=== PATIENT | female | born 1970 | race Caucasian/White ===

== ENCOUNTER 2018-02-28 16:20 | Emergency (ER) | payer MEDICAID ==
--- NOTE | 2018-02-28 17:36 | ED Physician Chart ---
ED Chief Complaint/HPI - Patient Information Date Seen:: 02/28/18 Time Seen:: 17:10 Chief Complaint:: ear pain and rash History of Present Illness:: Patient's had bilateral ear pain for the last 3 weeks. She's been putting peroxide in both ears which she thinks is making the pain worse. Patient's also had a burning and itching rash for the last 1/2-2 weeks. Patient lives with her boyfriend and states his home has had bedbugs before but apparently not scabies. Allergies:: Allergies Allergy/AdvReac Type Severity Reaction Status Date / Time acetaminophen [From Vicodin] Allergy Verified 02/28/18 16:57 hydrocodone [From Vicodin] Allergy Verified 02/28/18 16:57 Vitals:: Vital Signs - 8 hr 02/28/18 16:50 Temp 98.2 F HR 84 RR 16 BP 141/83 O2 Sat % 98 Historian:: Patient Review:: Nurse's Note Reviewed ED Review of Systems - Review of Systems General/Constitutional: No fever, No chills Skin: Skin lesions, Rash Head: No headache Eyes: No loss of vision ENT: Earache, Nasal drainage Neck: No neck pain, No swelling Cardio Vascular: No chest pain, No palpitations GI: No nausea, No vomiting G/U: No dysuria Musculoskeletal: No bone or joint pain Endocrine: No polyuria Psychiatric: No prior psych history, No depression Hematopoietic: No bruising Allergic/Immuno: No urticaria Neurological: No syncope, No focal symptoms ED Past Medical History - Past Medical History Past Medical History: Other (diverticulitis; hernia; status post urinary tract infection) Family History: Heart disease Social History: Smoker, 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) Surgical History: Hysterectomy, other (right hip for congenital hip dysplasia) Medication: None ED Physical Exam - Physical Examination General/Constitutional: Awake, Well-developed, well-nourished, Alert, No distress Head: Atraumatic Eyes: Lids, conjuctiva normal, PERRL Other Skin comments:: Slight widespread maculopapular rash ENMT: TM canals nl Other ENMT comments:: Redness and swelling tragus left ear; tenderness tragus right ear Neck: No nuchal rigidity Respiratory: Nl effort/Exclusion, Clear to Auscultation Cardio Vascular: RRR, No murmur, gallop, rubs, NL S1 S2 GI: No tenderness/rebounding/guarding : No CVA tenderness Extremities: Normal digits & nails Neuro/Psych: Alert/oriented ED Assessment - Assessment General Assessment: Examination of the ears reveal normal tympanic membranes; patient has cellulitis of the tragus of the left ear and since the tragus of her right ear is also tender (although not red and swollen) there may be some cellulitis of tragus of the right ear also. Patient may also have some otitis externa so will be prescribed Cortisporin otic suspension. She may also have scabies so will be prescribed Elimite 60 g tube. I personally gave instructions on how to apply the Elimite. ED Septic Shock - . Is Septic Shock (SBP<90, OR Lactate>4 mmol\L) present?: No - <6hrs of presentation: Vital Signs: Vital Signs - 8 hr 02/28/18 16:50 Temp 98.2 F HR 84 RR 16 BP 141/83 O2 Sat % 98 ED Reassessment (Disposition) - Reassessment Reassessment Condition:: Unchanged - Diagnosis Diagnosis:: Cellulitis left ear; otitis externa; scabies - Aftercare/Follow up Instructions Medication Prescribed:: Bactrim double strength #20 to take one twice a day; Elimite 60 g tube to apply per directions; Cortisporin otic to apply 3 drops both ears 4 times a day; Atarax 25 mg #20 take 1 4 times a day - Patient Disposition Discharge/Transfer:: Home Condition at Disposition:: Stable, Unchanged
== END 2018-02-28 18:00 | disposition home or self-care (01) ==
LOC: ER 16:20
DX: H60.92 Unspecified otitis externa, left ear (principal); B86 Scabies; F17.200 Nicotine dependence, unspecified, uncomplicated; Z90.710 Acquired absence of both cervix and uterus; Z88.8 Allergy status to other drugs, medicaments and biological substances
CPT/HCPCS: Z7502

== ENCOUNTER 2019-03-12 16:22 | Emergency (ER) | payer MEDICAID ==
--- NOTE | 2019-03-12 16:58 | ED Physician Chart ---
ED Chief Complaint/HPI - Patient Information Date Seen:: 03/12/19 Time Seen:: 16:40 Chief Complaint:: Abdominal Pain History of Present Illness:: onset x 3 days of diffuse, intermittent, crampy Abdominal Pain, and Leg Pain with N/V/D; pt denies trauma, H/As, S/T, neck pain, C/P, SOB, A/C, fever, chills , or urinary s/s Allergies:: Allergies Allergy/AdvReac Type Severity Reaction Status Date / Time No Known Allergies Allergy Verified 03/12/19 16:37 Vitals:: Vital Signs - 8 hr 03/12/19 16:40 Temp 97.7 F HR 95 RR 16 BP 123/79 O2 Sat % 98 Historian:: Patient Review:: Nurse's Note Reviewed, Old Chart Reviewed, EMS run form Reviewed ED Review of Systems - Review of Systems General/Constitutional: No fever, No chills, No weight loss, No weakness, No diaphoresis, No edema, No loss of appetite Skin: No skin lesions, No rash, No bruising Head: No headache, No light-headedness Eyes: No loss of vision, No pain, No diplopia ENT: No earache, No nasal drainage, No sore throat, No tinnitus Neck: No neck pain, No swelling, No thyromegaly, No stiffness, No mass noted Cardio Vascular: No chest pain, No palpitations, No PND, No orthopnea, No edema Pulmonary: No SOB, No cough, No sputum, No wheezing GI: Nausea, Vomiting, Diarrhea, Pain, No melena, No hematochezia, No constipation, No hematemesis G/U: No dysuria, No frequency, No hematuria, No nacturia Dairy Grazer: No vaginal discharge, No abnormal vaginal bleed, No contraction Musculoskeletal: No bone or joint pain, No back pain, No muscle pain Endocrine: No polyuria, No polydipsia Psychiatric: No prior psych history, No depression, No anxiety, No suicidal ideation, No homicidal ideation, No auditory hallucination, No visual hallucination Hematopoietic: No bruising, No lymphadenopathy Allergic/Immuno: No urticaria, No angioedema Neurological: No syncope, No focal symptoms, No weakness, No paresthesia, No headache, No seizure, No dizziness, No confusion, No vertigo ED Past Medical History - Past Medical History Obtainable: Yes Past Medical History: HTN Family History: HTN Social History: Non Smoker, No Alcohol, No Drug Use, Surgical History: Hysterectomy Psychiatricy History: None Medication: Reviewed Family Medical History - Family Member Mother History Unknown: Yes Ethnicity: Living Status: Unknown ED Physical Exam - Physical Examination General/Constitutional: Awake, Well-developed, well-nourished, Alert, No distress, GCS 15, Non-toxic appearing, Ambulatory Head: Atraumatic Eyes: Lids, conjuctiva normal, PERRL, EOMI Skin: Nl inspection, No rash, No skin lesions, No ecchymosis, Well hydrated, No lymphadenopathy ENMT: External ears, nose nl, TM canals nl, Nasal exam nl, Lips, teeth, gums nl , Oropharynx nl, Tonsils nl Neck: Nontender, Full ROM w/o pain, No JVD, No nuchal rigidity, No bruit, No mass, No stridor Respiratory: Nl effort/Exclusion, Clear to Auscultation, No Wheeze/Rhonchi/Rales Cardio Vascular: RRR, No murmur, gallop, rubs, NL S1 S2, Carotid/Femoral/Distal pulses equal bilaterally GI: No tenderness/rebounding/guarding, No organomegaly, No hernia, Normal BS's, Nondistended, No mass/bruits, No McBurney tenderness : No CVA tenderness Extremities: No tenderness or effusion, Full ROM, normal strength in all extremities, No edema, Normal digits & nails Neuro/Psych: Alert/oriented, DTR's symmetric, Normal sensory exam, Normal motor strength, Judgement/insight normal, Mood normal, Normal gait, No focal deficits Misc: Normal back, No paraspinal tenderness ED Labs/Radiology/EKG Results - Lab Results Comments:: Reviewed - Radiology Results Comments:: U/S: no DVT; NAD - EKG Interpretations EKG Time:: 16:47 Rate & Rhythm: 91; NSR Comments:: non-specific st-t changes ED Septic Shock - . Is Septic Shock (SBP<90, OR Lactate>4 mmol\L) present?: No - <6hrs of presentation: Vital Signs: Vital Signs - 8 hr 03/12/19 16:40 Temp 97.7 F HR 95 RR 16 BP 123/79 O2 Sat % 98 ED Reassessment (Disposition) - Reassessment Reassessment Condition:: Improved - Diagnosis Diagnosis:: Leg Pain; Abdominal Pain; N/V/D; AGE; UTI
[2019-03-12] MEDS: Sodium Chloride 0.9% 1,000 ML IV ONE (16:59)
[2019-03-12 17:04] LABS: % EOSINOPHILS 2.7 % (0.0-5.0); % LYMPHOCYTES 24.3 % (20.0-50.0); % MONOCYTES 3.3 % (2.0-10.0); % NEUTROPHILS 69.7 % (40.0-80.0); EOSINOPHILE ABSOLUTE 0.2 Th/cmm (0.1-0.4); HEMATOCRIT 39.6 % (41.0-60); HEMOGLOBIN 13.2 gm/dL (12-16); LYMPHOCYTE ABSOLUTE 2.1 Th/cmm (1.5-3.0); MEAN CELL VOLUME 91.7 fl (81-100); MEAN CORPUSCULAR HEMOGLOBIN 30.4 pg (27.0-31.0); MEAN CORPUSCULAR HGB CONC 33.2 pg (28.0-36.0); MEAN PLATELET VOLUME 7.8 fl; MONOCYTE ABSOLUTE 0.3 Th/cmm (0.3-1.0); NEUTROPHILE ABSOLUTE 5.9 Th/cmm (1.8-8.0); PLATELET COUNT 339 Th/cmm (150-400); RED BLOOD COUNT 4.32 Mil/cmm (3.80-5.10); RED CELL DISTRIBUTION WIDTH 13.5 % (11.5-20.0); WHITE BLOOD COUNT 8.5 Th/cmm (4.8-10.8)
[2019-03-12 17:16] LABS: ALB/GLOB RATIO 1.4 (1.0-1.8); ALKALINE PHOSPHATASE 58 U/L (34-104); AMYLASE SERUM 48 U/L (29-103); ANION GAP 13.5 (7.0-16.0); BILIRUBIN,TOTAL 0.2 mg/dL (0.3-1.0); BUN - UREA NITROGEN 21 mg/dL (7-25); CALCIUM SERUM 9.1 mg/dL (8.6-10.3); CARBON DIOXIDE 25.5 mEq/L (21.0-31.0); CHLORIDE 107 mEq/L (98-107); CREATININE - SERUM 0.8 mg/dL (0.6-1.2); GFR AFRICAN-AMERICAN > 60.0 ml/min (>90); GFR NON AFRICAN-AMERICAN > 60.0 ml/min; GLUCOSE 120 mg/dL (70-105); LIPASE 46 U/L (11-82); SGOT 17 U/L (13-39); SGPT/ALT 14 U/L (7-52); SODIUM SERUM 142 mEq/L (136-145); TOTAL PROTEIN,SERUM 6.9 gm/dL (6.0-8.3)
[2019-03-12 17:29] LABS: URINE SOURCE CLEAN C
[2019-03-12 17:32] LABS: URINE BILIRUBIN NEGATIVE (NEGATIVE); URINE BLOOD NEGATIVE (NEGATIVE); URINE GLUCOSE (UA) NEGATIVE (NEGATIVE); URINE KETONE NEGATIVE (NEGATIVE); URINE LEUKOCYTE ESTERASE NEGATIVE (NEGATIVE); URINE NITRATE NEGATIVE (NEGATIVE); URINE PH 6.5 (4.6 - 8.0); URINE PROTEIN NEGATIVE (NEGATIVE); URINE UROBILINOGEN 0.2 E.U./dL (0.2 - 1.0)
[2019-03-12 17:34] LABS: URINE CLARITY CLEAR (CLEAR); URINE COLOR YELLOW; URINE MICROSCOPIC INDICATED? YES
[2019-03-12 17:36] LABS: URINE BACTERIA FEW /hpf (NONE SEEN); URINE EPITHELIAL CELLS FEW /lpf (FEW); URINE RBC 0-2 /hpf (0-5)
[2019-03-12] MEDS: cefTRIAXone 1 GM in Sodium Chloride 0.9% 50 ML IV ONE (19:09)
--- NOTE | 2019-03-13 08:40 | Diagnostic Imaging Report ---
Bilateral lower extremity DVT study HISTORY: Pain COMPARISON: None Technique: Longitudinal and transverse sonographic images of the bilateral lower extremity veins were obtained with doppler analysis. FINDINGS: There is normal compressibility, augmentation and phasicity of the bilateral common femoral, superficial femoral, popliteal, and posterior tibial veins. The right peroneal vein was not visualized. Otherwise no evidence of thrombus formation. IMPRESSION: The right peroneal vein was not clearly visualized, otherwise no evidence of thrombus formation.
--- NOTE | 2019-03-13 08:56 | Diagnostic Imaging Report ---
CT abdomen and pelvis without intravenous contrast Indication: Abdominal pain, vomiting, rule out appendicitis Comparison: CT abdomen and pelvis on 01/13/2019, Technique: Axial images were obtained from the lung bases to the bilateral proximal femurs without IV contrast. Coronal reconstructions were made. total DLP: 642, CTDI13.8 FINDINGS: Hypoventilatory changes of the lung bases are noted. Assessment of the solid organs is limited due to lack of IV contrast. No focal hepatic lesions. There is a moderate-sized hiatal hernia. No focal splenic, pancreatic, or hydronephrosis. No evidence hydronephrosis or focal renal lesions. Diverticulosis is noted on suggest diverticulitis. No appendicitis. No free fluid or free air. Degenerative changes of the spine and pelvis are noted. IMPRESSION: No evidence of acute appendicitis. Moderate sized hiatal hernia seen on prior exam. Diverticulosis without evidence of diverticulitis.
== END 2019-03-12 19:56 | disposition home or self-care (01) ==
LOC: ER 16:22
DX: K52.9 Noninfective gastroenteritis and colitis, unspecified (principal); N39.0 Urinary tract infection, site not specified; M79.606 Pain in leg, unspecified; I10 Essential (primary) hypertension; Z90.710 Acquired absence of both cervix and uterus
CPT/HCPCS: 99284; 96365; 96361; 96375; 93005; 93970; 74176; 84484; 36415; 85025; 81001; 82150; 84703; 81025; 83690; 80053; J2405; J0696; J7030

== ENCOUNTER 2019-05-16 15:13 | Inpatient (IN) | payer MEDICAID ==
[2019-05-16 16:05] LABS: % BASOPHILS 0.8 % (0.0-2.0); % EOSINOPHILS 4.3 % (0.0-5.0); % LYMPHOCYTES 26.8 % (20.0-50.0); % MONOCYTES 6.9 % (2.0-10.0); % NEUTROPHILS 61.2 % (40.0-80.0); BASOPHILE ABSOLUTE 0.1 Th/cumm (0-0.2); EOSINOPHILE ABSOLUTE 0.4 Th/cmm (0.1-0.4); HEMATOCRIT 37.1 % (41.0-60); HEMOGLOBIN 12.2 gm/dL (12-16); LYMPHOCYTE ABSOLUTE 2.2 Th/cmm (1.5-3.0); MEAN CELL VOLUME 92.9 fl (81-100); MEAN CORPUSCULAR HEMOGLOBIN 30.5 pg (27.0-31.0); MEAN CORPUSCULAR HGB CONC 32.9 pg (28.0-36.0); MONOCYTE ABSOLUTE 0.6 Th/cmm (0.3-1.0); NEUTROPHILE ABSOLUTE 4.9 Th/cmm (1.8-8.0); PLATELET COUNT 321 Th/cmm (150-400); RED BLOOD COUNT 3.99 Mil/cmm (3.80-5.10); RED CELL DISTRIBUTION WIDTH 13.2 % (11.5-20.0); WHITE BLOOD COUNT 8.2 Th/cmm (4.8-10.8)
--- NOTE | 2019-05-16 16:05 | ED Physician Chart ---
ED Chief Complaint/HPI - Patient Information Date Seen:: 05/16/19 Time Seen:: 15:25 Chief Complaint:: Chest Pain History of Present Illness:: onset x 3 days of pressure exertional chest pain with dyspnea; pt denies trauma , H/As, neck pain, cough, Abd. Pain, A/N/V/D/C, fever, chills, or urinary s/s Allergies:: Allergies Allergy/AdvReac Type Severity Reaction Status Date / Time No Known Allergies Allergy Verified 03/12/19 16:37 Vitals:: Vital Signs - 8 hr 05/16/19 15:25 Temp 97.1 F HR 75 RR 16 BP 117/75 O2 Sat % 98 Historian:: Patient, Family Member Review:: Nurse's Note Reviewed, Old Chart Reviewed ED Review of Systems - Review of Systems General/Constitutional: No fever, No chills, No weight loss, No weakness, No diaphoresis, No edema, No loss of appetite Skin: No skin lesions, No rash, No bruising Head: No headache, No light-headedness Eyes: No loss of vision, No pain, No diplopia ENT: No earache, No nasal drainage, No sore throat, No tinnitus Neck: No neck pain, No swelling, No thyromegaly, No stiffness, No mass noted Cardio Vascular: Chest pain, No palpitations, No PND, No orthopnea, No edema Pulmonary: SOB, Cough, No sputum, No wheezing GI: No nausea, No vomiting, No diarrhea, No pain, No melena, No hematochezia, No constipation, No hematemesis G/U: No dysuria, No frequency, No hematuria, No nacturia Wool Broker: No vaginal discharge, No abnormal vaginal bleed, No contraction Musculoskeletal: No bone or joint pain, No back pain, No muscle pain Endocrine: No polyuria, No polydipsia Psychiatric: No prior psych history, No depression, No anxiety, No suicidal ideation Hematopoietic: No bruising, No lymphadenopathy Allergic/Immuno: No urticaria, No angioedema Neurological: No syncope, No focal symptoms, No weakness, No paresthesia, No headache, No seizure, No dizziness, No confusion, No vertigo ED Past Medical History - Past Medical History Obtainable: Yes Past Medical History: HTN Family History: HTN Social History: Non Smoker, No Alcohol, No Drug Use, Surgical History: None Psychiatricy History: None Medication: Reviewed Family Medical History - Family Member Mother History Unknown: Yes Ethnicity: Living Status: Unknown ED Physical Exam - Physical Examination General/Constitutional: Awake, Well-developed, well-nourished, Alert, No distress, GCS 15, Non-toxic appearing, Ambulatory Head: Atraumatic Eyes: Lids, conjuctiva normal, PERRL, EOMI Skin: Nl inspection, No rash, No skin lesions, No ecchymosis, Well hydrated, No lymphadenopathy ENMT: External ears, nose nl, TM canals nl, Nasal exam nl, Lips, teeth, gums nl , Oropharynx nl, Tonsils nl Neck: Nontender, Full ROM w/o pain, No JVD, No nuchal rigidity, No bruit, No mass, No stridor Other Neck comments:: supple; no meningeal signs; no cervical tenderness; no bruits Respiratory: Nl effort/Exclusion, Clear to Auscultation, No Wheeze/Rhonchi/Rales Cardio Vascular: RRR, No murmur, gallop, rubs, NL S1 S2, Carotid/Femoral/Distal pulses equal bilaterally GI: No tenderness/rebounding/guarding, No organomegaly, No hernia, Normal BS's, Nondistended, No mass/bruits, No McBurney tenderness Other GI comments:: no pulsatile masses : No CVA tenderness Extremities: No tenderness or effusion, Full ROM, normal strength in all extremities, No edema, Normal digits & nails Neuro/Psych: Alert/oriented, DTR's symmetric, Normal sensory exam, Normal motor strength, Judgement/insight normal, Mood normal, Normal gait, No focal deficits Misc: Normal back, No paraspinal tenderness ED Labs/Radiology/EKG Results - Lab Results Comments:: Reviewed - Radiology Results Comments:: CXR: NAD - EKG Interpretations EKG Time:: 15:54 Rate & Rhythm: 75; NSR Comments:: T-Wave Inversions; non-specific st-t changes ED Septic Shock - . Is Septic Shock (SBP<90, OR Lactate>4 mmol\L) present?: No - <6hrs of presentation: Vital Signs: Vital Signs - 8 hr 05/16/19 15:25 Temp 97.1 F HR 75 RR 16 BP 117/75 O2 Sat % 98 ED Reassessment (Disposition) - Reassessment Reassessment Condition:: Improved - Diagnosis Diagnosis:: Chest Pain; Dyspnea; Myocardial Ischemia; Hyperglycemia; Dehydration; Unstable Angina; Anxiety; HTN; Angina Pectoris - Aftercare/Follow up Instructions Aftercare/Follow-Up Instructions:: Counseled pt regarding lab results/diagnosis & need follow up, Counseled pt & family regarding lab results/diagnosis & need follow up - Patient Disposition Discharge/Transfer:: Acute Care w/in this hosp Accepting Physician:: Dr. Gallagher Time Called:: 1700 Time Responded:: 17:00 Admitted to:: Telemetry Spoke to:: Dr. Gallagher Admitting Medical Physician:: Dr. Gallagher Condition at Disposition:: Stable, Improved
[2019-05-16 16:20] LABS: ALB/GLOB RATIO 1.4 (1.0-1.8); ALBUMIN 3.7 gm/dL (3.7-5.3); ALKALINE PHOSPHATASE 49 U/L (34-104); ANION GAP 12.3 (7.0-16.0); BILIRUBIN,TOTAL 0.2 mg/dL (0.3-1.0); BUN - UREA NITROGEN 31 mg/dL (7-25); CALCIUM SERUM 9.2 mg/dL (8.6-10.3); CARBON DIOXIDE 22.3 mEq/L (21.0-31.0); CHLORIDE 108 mEq/L (98-107); CHOLESTEROL 160 mg/dL (<200); CREATININE - SERUM 0.7 mg/dL (0.6-1.2); CREATININE KINASE 64 U/L (30-223); GFR AFRICAN-AMERICAN > 60.0 ml/min (>90); GFR NON AFRICAN-AMERICAN > 60.0 ml/min; GLUCOSE 157 mg/dL (70-105); HDL -HIGH DENSITY LIPOPROTEIN 53 mg/dL (23-92); POTASSIUM SERUM 3.6 mEq/L (3.5-5.1); SGOT 13 U/L (13-39); SGPT/ALT 12 U/L (7-52); SODIUM SERUM 139 mEq/L (136-145); TOTAL PROTEIN,SERUM 6.3 gm/dL (6.0-8.3); TRIGLYCERIDES 100 mg/dL (<150)
[2019-05-16 17:11] LABS: INR 0.9 (0.5-1.4)
[2019-05-16] MEDS ORDERED: Aspirin 81mg Chewable Tab PO STA (17:12)
[2019-05-16] MEDS ORDERED: NITROGLYCERIN OINT 2% 1 INCH PACKET TP STA (17:13)
[2019-05-16] MEDS ORDERED: Aspirin 81mg Chewable Tab ONE (17:56)
[2019-05-16] MEDS ORDERED: NITROGLYCERIN OINT 2% 1 INCH PACKET TP ONE (17:56)
[2019-05-16] MEDS ORDERED: Albuterol Nebulizer 2.5mg/3mL HHN PRN (20:17)
[2019-05-16] MEDS ORDERED: Ipratropium Neb 0.5 mg/2.5 mL UD HHN PRN (20:17)
[2019-05-16] MEDS ORDERED: guaiFENesin 200 MG/10 ML UDC PO PRN (20:17)
[2019-05-16 20:21] VITALS: BP 125/67
[2019-05-16] MEDS: Heparin Sod 5,000Units/ML 5,000 UNITS/ML VIAL SUBQ SCH (21:02)
[2019-05-16] MEDS: D5-0.45NS 1,000 ML IV SCH (21:04)
--- NOTE | 2019-05-16 22:48 | History & Physical ---
ADMIT DATE: 05/16/2019 CHIEF COMPLAINT: Chest pain. HISTORY OF PRESENT ILLNESS: This is a 48-year-old female with history of hypertension, depression, admitted from home secondary to history of shortness of breath associated with chest pain. There is also nausea and vomiting. The patient is being admitted through the ER. PAST MEDICAL HISTORY: As mentioned in history of present illness. PAST SURGICAL HISTORY: Denies surgeries in the past. ALLERGIES: No known drug allergies. MEDICATIONS: The patient is on Zoloft, ____, ibuprofen, ____. FAMILY HISTORY: Noncontributory. SOCIAL HISTORY: The patient did smoke. No alcohol or intravenous drug use. REVIEW OF SYSTEMS: GENERAL: Complains not feeling well. HEENT: No blurred vision. LUNGS: No diagnosis of COPD or asthma. HEART: The patient with chest pain, history of hypertension. ABDOMEN: No nausea, vomiting, pain. GENITOURINARY: The patient denies increased frequency or dysuria. NEUROLOGIC: No headache, seizure, or syncope. PSYCHIATRIC: Stable. PHYSICAL EXAMINATION: VITAL SIGNS: Blood pressure 125/67, respirations 20, pulse 96, temperature 97.9. GENERAL: Middle-aged female, morbidly obese. NECK: Supple. No mass. LUNGS: Equal breath sounds, few rhonchi. HEART: Regular rate and rhythm without appreciable murmur. ABDOMEN: Soft, globular. EXTREMITIES: Positive excoriations. LABORATORY DATA: WBC 8.3, hemoglobin ____, platelets 321. Sodium 139, potassium 3.6, BUN 31, creatinine 0.7, blood sugar 167. Troponin negative x 1. ASSESSMENT AND PLAN: Chest pain, possible ACS, obesity, renal insufficiency, hyperglycemia, hypertension, and psych disorder. We will continue the patient on ____. We will perform 2D echo. We will refer the patient to Cardiology. The patient needs a stress test. Check the patient's A1c. We will hydrate the patient. Continue aspirin. We will consider beta kike. Continue on psych meds. We will monitor the patient closely in telemetry. JOB# [id number]
[2019-05-17 06:01] LABS: ANION GAP 11.1 (7.0-16.0); BUN - UREA NITROGEN 30 mg/dL (7-25); CALCIUM SERUM 8.8 mg/dL (8.6-10.3); CARBON DIOXIDE 24.9 mEq/L (21.0-31.0); CHLORIDE 107 mEq/L (98-107); CREATININE - SERUM 0.6 mg/dL (0.6-1.2); GFR AFRICAN-AMERICAN > 60.0 ml/min (>90); GFR NON AFRICAN-AMERICAN > 60.0 ml/min; GLUCOSE 123 mg/dL (70-105); SODIUM SERUM 139 mEq/L (136-145)
[2019-05-17] MEDS: D5-0.45NS 1,000 ML IV SCH (09:15)
[2019-05-17] MEDS: Heparin Sod 5,000Units/ML 5,000 UNITS/ML VIAL SUBQ SCH ×2 (09:20→20:24)
--- NOTE | 2019-05-17 09:36 | Diagnostic Imaging Report ---
CHEST X-RAY: AP view INDICATION: pain COMPARISON: None FINDINGS: Mild chronic interstitial lung changes are noted. There is faint 3 to 4 mm density projecting along the mid to lower lung zone between the right seventh and eighth posterior ribs. No focal consolidation or effusions. Heart size is normal. Osseous structures are intact. IMPRESSION: Mild chronic initial lung changes no focal consolidation identified. Faint 3 to 4 mm density projecting along the right lower lung zone between the right seventh and eighth posterior ribs. Findings are nonspecific and may be due to superimposition of bronchovascular structures and scapula versus less likely small nodule. Correlation with old exams would be helpful for comparison. Repeat chest x-ray with inspiratory and expiratory views is also recommended if no prior exams are available. If necessary CT follow-up may also be obtained. Final results were communicated administered to the ER team on 05/17/2019 at 9:30 AM.
--- NOTE | 2019-05-17 10:28 | General Progress Note ---
Subjective - Review of Systems Service Date: 05/17/19 Subjective: Chest pain increased with deep presenting persistent Objective - Results Result Diagrams: 05/16/19 15:55 05/17/19 05:12 Recent Labs: Laboratory Last Values WBC 8.2 Th/cmm (4.8-10.8) 05/16/19 15:55 RBC 3.99 Mil/cmm (3.80-5.10) 05/16/19 15:55 Hgb 12.2 gm/dL (12-16) 05/16/19 15:55 Hct 37.1 % (41.0-60) L 05/16/19 15:55 MCV 92.9 fl (81-100) 05/16/19 15:55 MCH 30.5 pg (27.0-31.0) 05/16/19 15:55 MCHC Differential 32.9 pg (28.0-36.0) 05/16/19 15:55 RDW 13.2 % (11.5-20.0) 05/16/19 15:55 Plt Count 321 Th/cmm (150-400) 05/16/19 15:55 MPV 7.8 fl 05/16/19 15:55 Neutrophils % 61.2 % (40.0-80.0) 05/16/19 15:55 Lymphocytes % 26.8 % (20.0-50.0) 05/16/19 15:55 Monocytes % 6.9 % (2.0-10.0) 05/16/19 15:55 Eosinophils % 4.3 % (0.0-5.0) 05/16/19 15:55 Basophils % 0.8 % (0.0-2.0) 05/16/19 15:55 PT 9.4 SECONDS (9.5-11.5) L 05/16/19 15:55 INR 0.90 (0.5-1.4) 05/16/19 15:55 D-Dimer 139 ng/mL (100-400) 05/16/19 15:55 Sodium 139 mEq/L (136-145) 05/17/19 05:12 Potassium 4.0 mEq/L (3.5-5.1) 05/17/19 05:12 Chloride 107 mEq/L (98-107) 05/17/19 05:12 Carbon Dioxide 24.9 mEq/L (21.0-31.0) 05/17/19 05:12 Anion Gap 11.1 (7.0-16.0) 05/17/19 05:12 BUN 30 mg/dL (7-25) H 05/17/19 05:12 Creatinine 0.6 mg/dL (0.6-1.2) 05/17/19 05:12 Est GFR ( Amer) > 60.0 ml/min (>90) 05/17/19 05:12 Est GFR (Non-Af Amer) > 60.0 ml/min 05/17/19 05:12 BUN/Creatinine Ratio 50.0 05/17/19 05:12 Glucose 123 mg/dL (70-105) H 05/17/19 05:12 POC Glucose 104 MG/DL (70 - 105) 05/16/19 18:34 Calcium 8.8 mg/dL (8.6-10.3) 05/17/19 05:12 Total Bilirubin 0.2 mg/dL (0.3-1.0) L 05/16/19 15:55 AST 13 U/L (13-39) 05/16/19 15:55 ALT 12 U/L (7-52) 05/16/19 15:55 Alkaline Phosphatase 49 U/L (34-104) 05/16/19 15:55 Creatine Kinase 64 U/L (30-223) 05/16/19 15:55 Troponin I < 0.01 ng/mL (0.01-0.05) L 05/17/19 01:59 B-Natriuretic Peptide 14.3 pg/mL (5.0-100.0) 05/16/19 15:55 Total Protein 6.3 gm/dL (6.0-8.3) 05/16/19 15:55 Albumin 3.7 gm/dL (3.7-5.3) 05/16/19 15:55 Globulin 2.6 gm/dL 05/16/19 15:55 Albumin/Globulin Ratio 1.4 (1.0-1.8) 05/16/19 15:55 Triglycerides 100 mg/dL (<150) 05/16/19 15:55 Cholesterol 160 mg/dL (<200) 05/16/19 15:55 LDL Cholesterol Direct 90 mg/dL (75-193) 05/16/19 15:55 HDL Cholesterol 53 mg/dL (23-92) 05/16/19 15:55 TSH 1.60 uIU/ml (0.34-5.60) 05/17/19 05:12 Serum , Qual NEGATIVE (NEGATIVE) 05/16/19 15:55 - Physical Exam Vitals and I&O: Vital Signs Temp 98.3 F 05/17/19 08:00 Pulse 60 05/17/19 09:15 Resp 19 05/17/19 08:00 BP 107/72 05/17/19 09:15 Pulse Ox 95 05/17/19 08:00 Intake & Output 05/16/19 05/17/19 05/17/19 18:59 06:59 18:59 Intake Total 0 900 974.667 Output Total 200 5 Balance -200 895 974.667 Weight (lbs) 104.326 kg 106.367 kg Intake: Intake, IV Amount 974.667 D5-0.45NS 1,000 ml @ 80 974.667 mls/hr IV .[id number] [facility] Rx #:[id number] Oral 0 900 Output: Urine 200 2 Emesis 3 Other: Stool Characteristics Soft Formed Weight Source Patient stated Bedscale Active Medications: Current Medications Acetaminophen (Tylenol) 650 mg PO Q4H PRN PRN Reason: Pain Or Fever above 101 Stop: 07/15/19 20:16 Albuterol Sulfate (Albuterol 2.5mg/3ml Neb Ud) 2.5 mg HHN Q2HRT PRN PRN Reason: Shortness of Breath or Wheeze Stop: 07/15/19 20:16 Aspirin (Ecotrin) 81 mg PO DAILY [facility] Stop: 07/16/19 08:59 Last Admin: 05/17/19 09:16 Dose: 81 mg Cyclobenzaprine HCl (Flexeril) 10 mg PO HS [facility] Stop: 07/15/19 20:59 Last Admin: 05/16/19 21:04 Dose: 10 mg Guaifenesin (Robitussin) 200 mg PO Q4HR PRN PRN Reason: Cough or Congestion Stop: 07/15/19 20:16 Heparin Sodium (Porcine) (Heparin) 5,000 units SUBQ Q12HR [facility] Stop: 07/15/19 20:59 Last Admin: 05/17/19 09:20 Dose: 5,000 units Dextrose/Sodium Chloride (D5-0.45ns) 1,000 mls @ 80 mls/hr IV .[id number] [facility] Stop: 07/15/19 20:29 Last Admin: 05/17/19 09:15 Dose: 80 mls/hr Ibuprofen (Motrin) 800 mg PO TID PRN PRN Reason: Pain (Moderate) Stop: 07/15/19 20:59 Ipratropium [place] (Atrovent Neb 0.5mg/2.5ml) 0.5 mg HHN Q2HRT PRN PRN Reason: Shortness of Breath or Wheeze Stop: 07/15/19 20:16 Lisinopril (Zestril) 10 mg PO DAILY [facility] Stop: 07/16/19 08:59 Last Admin: 05/17/19 09:15 Dose: 10 mg Nitroglycerin (Nitrostat) 0.4 mg SL Q5MIN PRN PRN Reason: Chest Pain Stop: 07/15/19 20:16 Last Admin: 05/17/19 00:07 Dose: 0.4 mg Ondansetron HCl (Zofran) 4 mg IV Q8H PRN PRN Reason: Nausea / Vomiting Stop: 07/15/19 20:16 Last Admin: 05/16/19 21:09 Dose: 4 mg Oxcarbazepine (Trileptal) 150 mg PO BID [facility]; Protocol Stop: 07/16/19 08:59 Last Admin: 05/17/19 09:16 Dose: 150 mg Sertraline HCl (Zoloft) 50 mg PO BID [facility]; Protocol Stop: 07/16/19 08:59 Last Admin: 05/17/19 09:16 Dose: 50 mg Zolpidem Tartrate (Ambien) 10 mg PO HS PRN PRN Reason: Insomnia Stop: 07/15/19 20:16 Last Admin: 05/17/19 00:22 Dose: 10 mg General: Alert, No acute distress HEENT: Mucous membr. moist/pink Neck: Supple, JVD, +2 carotid pulse wo bruit (flat) Cardiovascular: Regular rate, Normal S1, Normal S2, Systolic murmurs Abdomen: Bowel sounds, Soft, Other (no organomegaly) Extremities: Pulses (normal) Neurological: Normal gait, Normal speech, Strength at 5/5 X4 ext, Normal tone, Cranial nerves 3-12 NL, Reflexes 2+ Assessment/Plan - Assessment Assessment: Atypical chest pain Hypertension Depression COPD Nicotine dependence
--- NOTE | 2019-05-17 13:44 | Internal Medicine Prog Note ---
Internal Medicine Subjective - Subjective Patient seen and examined:: with staff, chart reviewed Patient is:: awake, verbal, interactive, in bed Patient Complaints of:: congestion, chest pain, SOB Per staff patient has:: no adverse event, no episodes of fall, tolerating meds Internal Medicine Objective - Results Result Diagrams: 05/16/19 15:55 05/17/19 05:12 Recent Labs: Laboratory Last Values WBC 8.2 Th/cmm (4.8-10.8) 05/16/19 15:55 RBC 3.99 Mil/cmm (3.80-5.10) 05/16/19 15:55 Hgb 12.2 gm/dL (12-16) 05/16/19 15:55 Hct 37.1 % (41.0-60) L 05/16/19 15:55 MCV 92.9 fl (81-100) 05/16/19 15:55 MCH 30.5 pg (27.0-31.0) 05/16/19 15:55 MCHC Differential 32.9 pg (28.0-36.0) 05/16/19 15:55 RDW 13.2 % (11.5-20.0) 05/16/19 15:55 Plt Count 321 Th/cmm (150-400) 05/16/19 15:55 MPV 7.8 fl 05/16/19 15:55 Neutrophils % 61.2 % (40.0-80.0) 05/16/19 15:55 Lymphocytes % 26.8 % (20.0-50.0) 05/16/19 15:55 Monocytes % 6.9 % (2.0-10.0) 05/16/19 15:55 Eosinophils % 4.3 % (0.0-5.0) 05/16/19 15:55 Basophils % 0.8 % (0.0-2.0) 05/16/19 15:55 PT 9.4 SECONDS (9.5-11.5) L 05/16/19 15:55 INR 0.90 (0.5-1.4) 05/16/19 15:55 D-Dimer 139 ng/mL (100-400) 05/16/19 15:55 Sodium 139 mEq/L (136-145) 05/17/19 05:12 Potassium 4.0 mEq/L (3.5-5.1) 05/17/19 05:12 Chloride 107 mEq/L (98-107) 05/17/19 05:12 Carbon Dioxide 24.9 mEq/L (21.0-31.0) 05/17/19 05:12 Anion Gap 11.1 (7.0-16.0) 05/17/19 05:12 BUN 30 mg/dL (7-25) H 05/17/19 05:12 Creatinine 0.6 mg/dL (0.6-1.2) 05/17/19 05:12 Est GFR ( Amer) > 60.0 ml/min (>90) 05/17/19 05:12 Est GFR (Non-Af Amer) > 60.0 ml/min 05/17/19 05:12 BUN/Creatinine Ratio 50.0 05/17/19 05:12 Glucose 123 mg/dL (70-105) H 05/17/19 05:12 POC Glucose 104 MG/DL (70 - 105) 05/16/19 18:34 Calcium 8.8 mg/dL (8.6-10.3) 05/17/19 05:12 Total Bilirubin 0.2 mg/dL (0.3-1.0) L 05/16/19 15:55 AST 13 U/L (13-39) 05/16/19 15:55 ALT 12 U/L (7-52) 05/16/19 15:55 Alkaline Phosphatase 49 U/L (34-104) 05/16/19 15:55 Creatine Kinase 64 U/L (30-223) 05/16/19 15:55 Troponin I 0.01 ng/mL (0.01-0.05) 05/17/19 10:04 B-Natriuretic Peptide 14.3 pg/mL (5.0-100.0) 05/16/19 15:55 Total Protein 6.3 gm/dL (6.0-8.3) 05/16/19 15:55 Albumin 3.7 gm/dL (3.7-5.3) 05/16/19 15:55 Globulin 2.6 gm/dL 05/16/19 15:55 Albumin/Globulin Ratio 1.4 (1.0-1.8) 05/16/19 15:55 Triglycerides 100 mg/dL (<150) 05/16/19 15:55 Cholesterol 160 mg/dL (<200) 05/16/19 15:55 LDL Cholesterol Direct 90 mg/dL (75-193) 05/16/19 15:55 HDL Cholesterol 53 mg/dL (23-92) 05/16/19 15:55 TSH 1.60 uIU/ml (0.34-5.60) 05/17/19 05:12 Serum , Qual NEGATIVE (NEGATIVE) 05/16/19 15:55 - Physical Exam Vitals and I&O: Vital Signs Temp 97.5 F 05/17/19 12:00 Pulse 63 05/17/19 12:00 Resp 18 05/17/19 12:00 BP 109/70 05/17/19 12:00 Pulse Ox 100 05/17/19 12:00 Intake & Output 05/16/19 05/17/19 05/17/19 18:59 06:59 18:59 Intake Total 0 900 974.667 Output Total 200 5 Balance -200 895 974.667 Weight (lbs) 104.326 kg 106.367 kg Intake: Intake, IV Amount 974.667 D5-0.45NS 1,000 ml @ 80 974.667 mls/hr IV .[id number] [facility] Rx #:[id number] Oral 0 900 Output: Urine 200 2 Emesis 3 Other: Stool Characteristics Soft Formed Weight Source Patient stated Bedscale Active Medications: Current Medications Acetaminophen (Tylenol) 650 mg PO Q4H PRN PRN Reason: Pain Or Fever above 101 Stop: 07/15/19 20:16 Albuterol Sulfate (Albuterol 2.5mg/3ml Neb Ud) 2.5 mg HHN Q2HRT PRN PRN Reason: Shortness of Breath or Wheeze Stop: 07/15/19 20:16 Aspirin (Ecotrin) 81 mg PO DAILY [facility] Stop: 07/16/19 08:59 Last Admin: 05/17/19 09:16 Dose: 81 mg Cyclobenzaprine HCl (Flexeril) 10 mg PO HS [facility] Stop: 07/15/19 20:59 Last Admin: 05/16/19 21:04 Dose: 10 mg Guaifenesin (Robitussin) 200 mg PO Q4HR PRN PRN Reason: Cough or Congestion Stop: 07/15/19 20:16 Heparin Sodium (Porcine) (Heparin) 5,000 units SUBQ Q12HR [facility] Stop: 07/15/19 20:59 Last Admin: 05/17/19 09:20 Dose: 5,000 units Dextrose/Sodium Chloride (D5-0.45ns) 1,000 mls @ 80 mls/hr IV .[id number] [facility] Stop: 07/15/19 20:29 Last Admin: 05/17/19 09:15 Dose: 80 mls/hr Ibuprofen (Motrin) 800 mg PO TID PRN PRN Reason: Pain (Moderate) Stop: 07/15/19 20:59 Last Admin: 05/17/19 12:15 Dose: 800 mg Ipratropium [place] (Atrovent Neb 0.5mg/2.5ml) 0.5 mg HHN Q2HRT PRN PRN Reason: Shortness of Breath or Wheeze Stop: 07/15/19 20:16 Lisinopril (Zestril) 10 mg PO DAILY [facility] Stop: 07/16/19 08:59 Last Admin: 05/17/19 09:15 Dose: 10 mg Nitroglycerin (Nitrostat) 0.4 mg SL Q5MIN PRN PRN Reason: Chest Pain Stop: 07/15/19 20:16 Last Admin: 05/17/19 00:07 Dose: 0.4 mg Ondansetron HCl (Zofran) 4 mg IV Q8H PRN PRN Reason: Nausea / Vomiting Stop: 07/15/19 20:16 Last Admin: 05/17/19 12:16 Dose: 4 mg Oxcarbazepine (Trileptal) 150 mg PO BID [facility]; Protocol Stop: 07/16/19 08:59 Last Admin: 05/17/19 09:16 Dose: 150 mg Sertraline HCl (Zoloft) 50 mg PO BID [facility]; Protocol Stop: 07/16/19 08:59 Last Admin: 05/17/19 09:16 Dose: 50 mg Zolpidem Tartrate (Ambien) 10 mg PO HS PRN PRN Reason: Insomnia Stop: 07/15/19 20:16 Last Admin: 05/17/19 00:22 Dose: 10 mg General: alert, obese, appears older HEENT: NC/AT, PERRLA, EOMI, anicteric sclerae Neck: Supple, No JVD Lungs: CTAB Cardiovascular: RRR, Normal S1, Normal S2, without murmur Abdomen: soft, globular, non-distended, positive bowel sound Extremities: excoriation Neurological: no change Internal Medicine Assmt/Plan - Assessment Assessment: ASSESSMENT AND PLAN: Chest pain, possible ACS, obesity, renal insufficiency, hyperglycemia, hypertension, and psych disorder. - Plan Plan: PLAN: We will continue the patient on _ntg___. We will perform 2D echo. We will refer the patient to Cardiology. The patient needs a stress test. Check the patient's A1c. We will hydrate the patient. Continue aspirin. We will consider beta kike. Continue on psych meds. We will monitor the patient closely in telemetry.
--- NOTE | 2019-05-17 19:59 | Consultation ---
DATE OF CONSULTATION: 05/16/2019 PATIENT OF: Dr. Gallagher. HISTORY OF PRESENT ILLNESS: This is a 48-year-old female patient who has been complaining of chest pain, persistent for a period of 1 day. Following this, the patient came to the Emergency Room. The patient does have shortness of breath. PAST MEDICAL HISTORY: The patient has history of hypertension, depression, COPD. FAMILY HISTORY: Unremarkable. SOCIAL HISTORY: The patient smokes about half pack a day. ALLERGIES: None. PHYSICAL EXAMINATION: VITAL SIGNS: Blood pressure 130/80, pulse 70, respirations 20. HEAD: Normocephalic. No lumps or bumps. EYES: Pupils equal and reactive to light. Fundi show AV nicking, sclerae white, conjunctivae pink. NECK: Carotid 2+. Normal upstroke. JVD flat. Thyroid not palpable. Lymph nodes not palpable. CHEST: Shows increased AP diameter. No kyphosis or scoliosis. LUNGS: Bilateral bronchovesicular breath sounds. HEART: PMI fifth intercostal space with lateral to midclavicular line. S1, S2, S3, S4, soft systolic murmur. ABDOMEN: Soft. Liver, spleen not palpable. No organomegaly. Bowel sounds active. NEUROLOGIC: Unremarkable. EXTREMITIES: Peripheral pulses 2+. No pedal edema. CLINICAL IMPRESSION: 1. Atypical chest pain, troponin levels normal. 2. Obesity. 3. Hypertension. 4. Depression. PLAN: Troponin levels normal. EKG unremarkable. If echo is normal, the patient can be discharged. JOB# [id number]
[2019-05-18] MEDS: D5-0.45NS 1,000 ML IV SCH (01:03)
[2019-05-18] MEDS: Heparin Sod 5,000Units/ML 5,000 UNITS/ML VIAL SUBQ SCH (09:20)
--- NOTE | 2019-05-18 12:28 | General Progress Note ---
Subjective - Review of Systems Service Date: 05/18/19 Subjective: Chest pain increased with deep presenting persistent Objective - Results Result Diagrams: 05/16/19 15:55 05/17/19 05:12 Recent Labs: Laboratory Last Values WBC 8.2 Th/cmm (4.8-10.8) 05/16/19 15:55 RBC 3.99 Mil/cmm (3.80-5.10) 05/16/19 15:55 Hgb 12.2 gm/dL (12-16) 05/16/19 15:55 Hct 37.1 % (41.0-60) L 05/16/19 15:55 MCV 92.9 fl (81-100) 05/16/19 15:55 MCH 30.5 pg (27.0-31.0) 05/16/19 15:55 MCHC Differential 32.9 pg (28.0-36.0) 05/16/19 15:55 RDW 13.2 % (11.5-20.0) 05/16/19 15:55 Plt Count 321 Th/cmm (150-400) 05/16/19 15:55 MPV 7.8 fl 05/16/19 15:55 Neutrophils % 61.2 % (40.0-80.0) 05/16/19 15:55 Lymphocytes % 26.8 % (20.0-50.0) 05/16/19 15:55 Monocytes % 6.9 % (2.0-10.0) 05/16/19 15:55 Eosinophils % 4.3 % (0.0-5.0) 05/16/19 15:55 Basophils % 0.8 % (0.0-2.0) 05/16/19 15:55 PT 9.4 SECONDS (9.5-11.5) L 05/16/19 15:55 INR 0.90 (0.5-1.4) 05/16/19 15:55 D-Dimer 139 ng/mL (100-400) 05/16/19 15:55 Sodium 139 mEq/L (136-145) 05/17/19 05:12 Potassium 4.0 mEq/L (3.5-5.1) 05/17/19 05:12 Chloride 107 mEq/L (98-107) 05/17/19 05:12 Carbon Dioxide 24.9 mEq/L (21.0-31.0) 05/17/19 05:12 Anion Gap 11.1 (7.0-16.0) 05/17/19 05:12 BUN 30 mg/dL (7-25) H 05/17/19 05:12 Creatinine 0.6 mg/dL (0.6-1.2) 05/17/19 05:12 Est GFR ( Amer) > 60.0 ml/min (>90) 05/17/19 05:12 Est GFR (Non-Af Amer) > 60.0 ml/min 05/17/19 05:12 BUN/Creatinine Ratio 50.0 05/17/19 05:12 Glucose 123 mg/dL (70-105) H 05/17/19 05:12 POC Glucose 104 MG/DL (70 - 105) 05/16/19 18:34 Calcium 8.8 mg/dL (8.6-10.3) 05/17/19 05:12 Total Bilirubin 0.2 mg/dL (0.3-1.0) L 05/16/19 15:55 AST 13 U/L (13-39) 05/16/19 15:55 ALT 12 U/L (7-52) 05/16/19 15:55 Alkaline Phosphatase 49 U/L (34-104) 05/16/19 15:55 Creatine Kinase 64 U/L (30-223) 05/16/19 15:55 Troponin I 0.01 ng/mL (0.01-0.05) 05/17/19 10:04 B-Natriuretic Peptide 14.3 pg/mL (5.0-100.0) 05/16/19 15:55 Total Protein 6.3 gm/dL (6.0-8.3) 05/16/19 15:55 Albumin 3.7 gm/dL (3.7-5.3) 05/16/19 15:55 Globulin 2.6 gm/dL 05/16/19 15:55 Albumin/Globulin Ratio 1.4 (1.0-1.8) 05/16/19 15:55 Triglycerides 100 mg/dL (<150) 05/16/19 15:55 Cholesterol 160 mg/dL (<200) 05/16/19 15:55 LDL Cholesterol Direct 90 mg/dL (75-193) 05/16/19 15:55 HDL Cholesterol 53 mg/dL (23-92) 05/16/19 15:55 TSH 1.60 uIU/ml (0.34-5.60) 05/17/19 05:12 Serum , Qual NEGATIVE (NEGATIVE) 05/16/19 15:55 - Physical Exam Vitals and I&O: Vital Signs Temp 98.8 F 05/18/19 12:14 Pulse 60 05/18/19 12:14 Resp 18 05/18/19 12:14 BP 112/69 05/18/19 12:14 Pulse Ox 98 05/18/19 12:14 Intake & Output 05/17/19 05/18/19 05/18/19 18:59 06:59 18:59 Intake Total 2474.667 1000 Balance 2474.667 1000 Weight (lbs) 106.141 kg 106.141 kg Intake: Intake, IV Amount 526.639 6846 D5-0.45NS 1,000 ml @ 80 339.349 7343 mls/hr IV .[id number] [facility] Rx #:[id number] Oral 1500 Other: # Voids 5 # Bowel Movements 0 Weight Source Bedscale Bedscale Active Medications: Current Medications Acetaminophen (Tylenol) 650 mg PO Q4H PRN PRN Reason: Pain Or Fever above 101 Stop: 07/15/19 20:16 Albuterol Sulfate (Albuterol 2.5mg/3ml Neb Ud) 2.5 mg HHN Q2HRT PRN PRN Reason: Shortness of Breath or Wheeze Stop: 07/15/19 20:16 Aspirin (Ecotrin) 81 mg PO DAILY [facility] Stop: 07/16/19 08:59 Last Admin: 05/18/19 09:20 Dose: 81 mg Cyclobenzaprine HCl (Flexeril) 10 mg PO HS [facility] Stop: 07/15/19 20:59 Last Admin: 05/17/19 20:24 Dose: 10 mg Guaifenesin (Robitussin) 200 mg PO Q4HR PRN PRN Reason: Cough or Congestion Stop: 07/15/19 20:16 Heparin Sodium (Porcine) (Heparin) 5,000 units SUBQ Q12HR [facility] Stop: 07/15/19 20:59 Last Admin: 05/18/19 09:20 Dose: 5,000 units Dextrose/Sodium Chloride (D5-0.45ns) 1,000 mls @ 80 mls/hr IV .[id number] [facility] Stop: 07/15/19 20:29 Last Admin: 05/18/19 01:03 Dose: 80 mls/hr Ibuprofen (Motrin) 800 mg PO TID PRN PRN Reason: Pain (Moderate) Stop: 07/15/19 20:59 Last Admin: 05/17/19 12:15 Dose: 800 mg Ipratropium [place] (Atrovent Neb 0.5mg/2.5ml) 0.5 mg HHN Q2HRT PRN PRN Reason: Shortness of Breath or Wheeze Stop: 07/15/19 20:16 Lisinopril (Zestril) 10 mg PO DAILY [facility] Stop: 07/16/19 08:59 Last Admin: 05/18/19 09:19 Dose: 10 mg Nitroglycerin (Nitrostat) 0.4 mg SL Q5MIN PRN PRN Reason: Chest Pain Stop: 07/15/19 20:16 Last Admin: 05/17/19 00:07 Dose: 0.4 mg Ondansetron HCl (Zofran) 4 mg IV Q8H PRN PRN Reason: Nausea / Vomiting Stop: 07/15/19 20:16 Last Admin: 05/17/19 12:16 Dose: 4 mg Oxcarbazepine (Trileptal) 150 mg PO BID [facility]; Protocol Stop: 07/16/19 08:59 Last Admin: 05/18/19 09:19 Dose: 150 mg Sertraline HCl (Zoloft) 50 mg PO BID [facility]; Protocol Stop: 07/16/19 08:59 Last Admin: 05/18/19 09:20 Dose: 50 mg Zolpidem Tartrate (Ambien) 10 mg PO HS PRN PRN Reason: Insomnia Stop: 07/15/19 20:16 Last Admin: 05/17/19 00:22 Dose: 10 mg General: Alert, No acute distress HEENT: Mucous membr. moist/pink Neck: Supple, JVD, +2 carotid pulse wo bruit (flat) Cardiovascular: Regular rate, Normal S1, Normal S2, Systolic murmurs Abdomen: Bowel sounds, Soft, Other (no organomegaly) Extremities: Pulses (normal) Neurological: Normal gait, Normal speech, Strength at 5/5 X4 ext, Normal tone, Cranial nerves 3-12 NL, Reflexes 2+ Assessment/Plan - Assessment Assessment: Atypical chest pain Hypertension Depression COPD Nicotine dependence - Plan Plan: The patient clinically stable for discharge
--- NOTE | 2019-05-18 12:47 | Cardiology ---
05/17/2019 ECHOCARDIOGRAM REPORT PATIENT OF: Dr. Gallagher. M-MODE ECHOCARDIOGRAM: Mitral valve, anterior leaflet of mitral valve shows normal excursion, EF velocity. Posterior leaflet of the mitral valve shows normal excursion. Left ventricular posterior wall showed normal thickness, excursion. Interventricular septum showed normal thickness, excursion. Ejection fraction 63%. Left atrium normal. Aortic root shows normal dimension, normal excursion of aortic leaflets. CONCLUSION: Normal M-Mode echo, ejection fraction 63%. 2D ECHO: Long axis view showed normal sized left ventricle with normal wall motion, mitral valve shows normal excursion. Left atrium normal. Aortic root shows normal dimension, normal excursion of aortic leaflets. Short axis view of mitral valve normal. Short axis view of aortic valve normal. Apical four chamber view showed normal sized left ventricle, left atrium, right ventricle, right atrium, tricuspid and mitral valve. Ejection fraction 63%. CONCLUSION: Normal 2D echo, ejection fraction 63%. Doppler study shows mild mitral regurgitation, trace tricuspid regurgitation, right ventricular systolic pressure 28 mmHg. CONCLUSION: Mild mitral regurgitation, trace tricuspid regurgitation, ejection fraction 63%. JOB# [id number]
--- NOTE | 2019-05-18 15:46 | Discharge Summary ---
DATE OF DISCHARGE: 05/18/2019 CHIEF COMPLAINT: Chest pain. FINAL DIAGNOSES: Atypical chest pain, obesity, renal insufficiency, hyperglycemia, hypertension, psych disorder. HISTORY: This is a 48-year-old female with history of hypertension, depression, admitted secondary to chest pain with nausea and vomiting. The patient was admitted to telemetry. PHYSICAL EXAMINATION: VITAL SIGNS: Blood pressure 112/69, respiration 18, pulse 60, and temperature 98. GENERAL: Middle-aged female, morbidly obese. NECK: Supple. No mass. LUNGS: Equal breath sounds, few rhonchi. HEART: Regular rate and rhythm without appreciable murmur. ABDOMEN: Soft, nontender. EXTREMITIES: No cyanosis, edema. HOSPITAL COURSE: The patient was admitted to telemetry, continue aspirin and heparin and inhibitor. Rest of medications were adjusted. The patient's 2D echo, which showed an ejection fraction with mild mitral regurgitation and tricuspid regurgitation. The patient cleared for discharge and 12 were negative. CONDITION ON DISCHARGE: Transfers. DISCHARGE INSTRUCTIONS: The patient to continue current care. The patient to follow with primary care doctor and need referral for a stress test. JOB# [id number]
[2019-05-20 20:04] LABS: A1C 5.9 % (4.8-5.6)
== END 2019-05-18 14:50 | disposition home or self-care (01) | DRG 198 ==
LOC: ER 15:13 → TELE 18:06
PROVIDERS: ADMIT Internal Medicine; ATTEND Internal Medicine
DX: R07.89 Other chest pain (principal); I20.0 Unstable angina; I08.1 Rheumatic disorders of both mitral and tricuspid valves; I10 Essential (primary) hypertension; R73.9 Hyperglycemia, unspecified; E86.0 Dehydration; F41.9 Anxiety disorder, unspecified; F32.9 Major depressive disorder, single episode, unspecified; E66.9 Obesity, unspecified; F29 Unspecified psychosis not due to a substance or known physiological condition; F17.210 Nicotine dependence, cigarettes, uncomplicated; N28.9 Disorder of kidney and ureter, unspecified; Z68.33 Body mass index [BMI] 33.0-33.9, adult
CPT/HCPCS: 36415-UA; 71045-TC; 80048-TC; 80053-TC; 80061-TC; 82550-TC; 82948-90; 83036-90; 83880-TC; 84443-TC; 84484-TC; 84703-TC; 85025-TC; 85379-TC; 85610-TC; 93005; 94760; J1644; J2405; Z7610

== ENCOUNTER 2019-07-16 10:14 | Emergency (ER) | payer MEDICAID ==
--- NOTE | 2019-07-16 10:50 | ED Physician Chart ---
ED Chief Complaint/HPI - Patient Information Date Seen:: 07/16/19 Time Seen:: 10:35 Chief Complaint:: right knee pain History of Present Illness:: Patient in a department store yesterday slipped on a wet floor landing on her right knee. Patient's had a cough productive of yellow and green sputum for the last 2 weeks. She has a pleuritic chest pain radiating to her back. No fever. Allergies:: Allergies Allergy/AdvReac Type Severity Reaction Status Date / Time No Known Allergies Allergy Verified 03/12/19 16:37 Vitals:: Vital Signs - 8 hr 07/16/19 10:26 Temp 98.3 F HR 77 RR 18 BP 114/72 O2 Sat % 95 Historian:: Patient Review:: Nurse's Note Reviewed ED Review of Systems - Review of Systems General/Constitutional: No fever, No chills Skin: Skin lesions Head: No headache Eyes: No loss of vision ENT: No earache Neck: No neck pain Cardio Vascular: No chest pain, No palpitations Pulmonary: No SOB, Cough, Sputum GI: No nausea, No vomiting, No diarrhea G/U: No dysuria Musculoskeletal: Bone or joint pain Endocrine: No polyuria Psychiatric: No prior psych history, No depression, No anxiety Hematopoietic: Bruising Allergic/Immuno: Urticaria, No urticaria Neurological: No syncope, No focal symptoms ED Past Medical History - Past Medical History Past Medical History: No significant medical hx Family History: Heart disease Social History: Smoker, Alcohol, Other (occasional alcohol consumption) Surgical History: Hysterectomy, other (glaucoma; right hip surgery at age 1) Psychiatricy History: None Medication: None Family Medical History - Family Member Mother History Unknown: Yes Ethnicity: Living Status: Unknown ED Physical Exam - Physical Examination General/Constitutional: Awake, Well-developed, well-nourished, Alert, No distress Head: Atraumatic Eyes: Lids, conjuctiva normal, PERRL Other Skin comments:: 3 cm contusion right pretibial area about 10 cm distal to the knee ENMT: External ears, nose nl, TM canals nl, Nasal exam nl, Lips, teeth, gums nl , Oropharynx nl, Tonsils nl Neck: No nuchal rigidity Respiratory: Nl effort/Exclusion, Clear to Auscultation, No Wheeze/Rhonchi/Rales Cardio Vascular: RRR, No murmur, gallop, rubs, NL S1 S2 GI: No tenderness/rebounding/guarding, No organomegaly, No hernia, Normal BS's, Nondistended, No mass/bruits, No McBurney tenderness Other Extremities comments:: Right kne: 2 out of 4 pretibial swelling: Tenderness over medial aspect most marked over medial joint line and over the patellar tendon; about 100 of passive flexion; collateral and cruciate ligaments stable Neuro/Psych: Alert/oriented, No focal deficits ED Labs/Radiology/EKG Results - Radiology Results Results: X-ray right knee showed arthritis; no fracture ED Assessment - Assessment General Assessment: This patient has tenderness of the medial joint line of the right knee she may have a meniscal tear and should follow-up with an orthopedist for an MRI; 6 inch Samuel wrap to be applied to right knee ED Septic Shock - . Is Septic Shock (SBP<90, OR Lactate>4 mmol\L) present?: No - <6hrs of presentation: Vital Signs: Vital Signs - 8 hr 07/16/19 10:26 Temp 98.3 F HR 77 RR 18 BP 114/72 O2 Sat % 95 ED Reassessment (Disposition) - Reassessment Reassessment Condition:: Unchanged - Diagnosis Diagnosis:: Sprain right knee; bronchitis - Aftercare/Follow up Instructions Aftercare/Follow-Up Instructions:: Refer to Discharge Instructions Medication Prescribed:: Z-[place] and Robitussin-DM to take 10 mL 4 times a day 4 ounces prescribed - Patient Disposition Discharge/Transfer:: Home Condition at Disposition:: Stable, Unchanged
--- NOTE | 2019-07-16 11:39 | Diagnostic Imaging Report ---
Right knee 3 views Indication: Trauma Comparison: none Findings: Moderate degenerative changes are noted including mild to moderate narrowing of the medial knee compartment. Diffuse marginal osteophytic spurs are noted. No evidence of a fracture or joint effusion. There is prepatellar and infrapatellar soft tissue swelling. Vascular phleboliths are seen in the proximal tib-fib regions. Impression: Prepatellar infrapatellar soft tissue swelling. No evidence of an acute fracture. No joint effusion Degenerative changes. In the setting of trauma, if clinical symptoms persist and there is continued concern for an occult fracture, follow up exams in 5-7 days is suggested.
== END 2019-07-16 11:00 | disposition home or self-care (01) ==
LOC: ER 10:14
DX: S83.91XA Sprain of unspecified site of right knee, initial encounter (principal); J40 Bronchitis, not specified as acute or chronic; F17.200 Nicotine dependence, unspecified, uncomplicated; Z90.710 Acquired absence of both cervix and uterus; W01.0XXA Fall on same level from slipping, tripping and stumbling without subsequent striking against object, initial encounter; Y93.89 Activity, other specified; Y92.89 Other specified places as the place of occurrence of the external cause; Y99.8 Other external cause status
CPT/HCPCS: 73562-TC-RT; Z7502